=== PATIENT | male | born 1945 | race Caucasian/White ===

== ENCOUNTER 2025-06-13 10:36 | Outpatient (RCR) | payer MEDICARE, OTHER, SELFPAY ==
[2025-06-13] MEDS: INJECTAFER 265 MG IV (11:16)
[2025-06-13 11:27] VITALS: BP 156/72
[2025-06-13 12:25] VITALS: BP 140/70
== END 2025-06-16 09:20 | disposition home or self-care (01) ==
LOC: OID 10:36
PROVIDERS: ATTENDING PHYSICIAN Family Medicine
DX: D50.9 Iron deficiency anemia, unspecified (principal); M35.3 Polymyalgia rheumatica
CPT/HCPCS: 96365; J1439

== ENCOUNTER 2025-06-23 10:32 | Outpatient (RCR) | payer MEDICARE, OTHER, SELFPAY ==
[2025-06-23] MEDS: INJECTAFER 265 MG IV (11:10)
[2025-06-23 11:26] VITALS: BP 138/73
[2025-06-23 12:00] VITALS: BP 133/72
== END 2025-06-24 08:24 | disposition home or self-care (01) ==
LOC: OID 10:32
PROVIDERS: ATTENDING PHYSICIAN Family Medicine
DX: D50.9 Iron deficiency anemia, unspecified (principal); D64.9 Anemia, unspecified; M35.3 Polymyalgia rheumatica; I49.8 Other specified cardiac arrhythmias
CPT/HCPCS: 96365; J1439

== ENCOUNTER 2025-11-03 17:25 | Emergency (ER) | payer MEDICARE, OTHER, SELFPAY ==
[2025-11-03 17:32] VITALS: BP 107/87
[2025-11-03 17:59] LABS: Urine Character Clear (Clear)
[2025-11-03 18:00] LABS: Hematocrit 41.1 % (39.0-52.0); Hemoglobin 13.8 g/dL (13.0-18.0); Mean Corp Hgb Conc. 33.6 g/dL (33.0-37.0); Mean Corpuscular Volume 96.3 fL (80.0-94.0); Nucleated Red Blood Cells % 0 % (-); Platelet Count 232 10^3/uL (130-400); Red Cell Dist. Width 15.0 % (11.5-14.5)
[2025-11-03 18:12] LABS: Urine Red Blood Cell 0-2 /HPF (0-2); Urine Squamous Cell 0-2 /LPF (Few); Urine White Cell 0-2 /HPF (0-5)
[2025-11-03 18:16] LABS: ALT (SGPT) 23 U/L (0-50); AST (SGOT) 27 U/L (17-59); Albumin 4.9 g/dl (3.5-5.0); Alkaline Phosphatase 96 U/L (38-126); Blood Urea Nitrogen 23 mg/dl (9-20); Calcium 10.4 mg/dl (8.4-10.2); Carbon Dioxide 16 mmol/L (22-30); Chloride 106 mmol/L (98-107); Glucose 207 mg/dl (70-99); Potassium 4.8 mmol/L (3.5-5.1); Sodium 137 mmol/L (135-145); Total Protein 7.6 g/dl (6.3-8.2); eGFR > 60.00
[2025-11-03 23:45] VITALS: BP 182/93
--- NOTE | 2025-11-04 00:09 | ED.GENMED ---
History of Present Illness
General
Chief Complaint: Change in Mental Status
Source: patient
Exam Limitations: none
Time Seen by Provider: 11/03/25 23:33
Nursing documentation reviewed up to this point in time: agreed with
History of Present Illness
History of Present Illness:
79-year-old male with a past medical history of TIA, A-fib on Eliquis, diabetes, presents to the ER today with concerns of transient episode of confusion. Patient reports that earlier today around lunchtime, patient was attempting to complete tasks
on his computer and send emails when he was trying to type all of this out and he could not complete the task. Patient reports that he froze at his computer and could not bring himself to work on his computer or remember how to do it. He went to
rest and he tried to do his computer work again but had the same episode of not remembering how to do this task. His also noticed this change and reported that he seemed confused but he had normal speech at the time and knew where he was. He
had a TIA in the past an at that time his symptoms were slurredd speech. He has been compliant with his Eliquis. He is not since followed with neurology. He currently does not follow with a neurologist. He denies any headache or neck pain. He
denies any dizziness. He denies any visual changes. He reports that since he has been in the ER, he has not had further episode of confusion and has been feeling his normal self. He denies abdominal pain, vomiting, coughing, fevers or chills. He
sveta any head or neck trauma. He reports that the last time he had a drink was multiple days ago. He sveta any new medications.
Past History
Past History
ED Past Medical History: Arrthythmia (Atrial fibrillation), HTN, Hypercholesterolemia, NIDDM and Other (Gout, History of C diff, Kidney stones,)
ED Past Surgical History: Cardiac (Radiofrequency ablation of A. fib)
Social History
Tobacco: Non-smoker
Alcohol: Occasional
Drug: None
Personal:
Living: with family
Employment: Retired
Family History
Family History: Hypertension; Negative Sudden
Review of Systems
Review of Systems
All Other Systems: ROS reviewed and negative except as documented in HPI and ROS
Phy Exam
Physical Exam
Physical Exam:
General: Patient is well appearing and in no acute distress; non-toxic
Skin: Warm and dry, no rashes or lesions
Head: Normocephalic, atraumatic
Eyes: Sclera non-icteric. EOMs intact.
Cardiac: Regular rate and rhythm, no murmurs
Peripheral Vascular: No lower extremity swelling or edema
Pulm: Normal respiratory effort, no wheezes, rales, or rhonchi
Abdomen: No abdominal tenderness to palpation
Neuro: CN II-XII intact, no focal neurologic deficits. Normal speech. Oriented times 3. Awake and alewrt. Normal gait, normal finger to nose, heel to marie.
NIHSS of 0.
Psychiatric: Appropriate mood and affect.
Course
Orders/Labs/Results
Orders:
Orders
11/03/25 17:45
Complete Blood Count/With Diff Urgent
Comprehensive Metabolic Panel Urgent
11/03/25 17:46
Urinalysis Reflex To Culture Urgent
Date Specimen was Collected: 11/03/25
Time Specimen was Collected: 17:36
Urine Microscopic Reflex Cult Urgent
11/03/25 23:52
CT Head W/o Iv Contrast Urgent
Comment:
Reason For Exam: confusion
11/04/25
Electrocardiogram (*1) Stat
Reason for Study: TIA/Stroke
11/04/25 00:35
CT Head & Neck Angio W/wo IV Urgent
Comment:
Reason For Exam: confusion, tia concern
Abnormal Lab Results
11/03/25 11/03/25
17:45 17:46
RBC 4.27 L 10^6/uL
(4.70-6.10)
MCV 96.3 H fL
(80.0-94.0)
MCH 32.3 H pg
(27.0-31.0)
RDW 15.0 H %
(11.5-14.5)
Abs Immat Gran (auto) 0.1 H 10^3/uL
(0-0.05)
Absolute Neuts (auto) 7.8 H 10^3/uL
(1.4-6.5)
Absolute Lymphs (auto) 1.1 L 10^3/uL
(1.2-3.4)
Absolute Monos (auto) 0.8 H 10^3/uL
(0.1-0.6)
Immature Gran % 0.9 H %
(0-0.5)
Neutrophils % 78.4 H %
(42.2-75.2)
Lymphocytes % 10.6 L %
(20.5-51.1)
Carbon Dioxide 16 L mmol/L
(22-30)
BUN 23 H mg/dl
(9-20)
Creatinine 0.6 L mg/dL
(0.7-1.3)
Glucose 207 H mg/dl
(70-99)
Calcium 10.4 H mg/dl
(8.4-10.2)
Urine Albumin (Reflex) 2+ A
(Neg - Trace)
11/03/25 17:45
11/03/25 17:45
Vital Signs
Initial and Last Documented VS:
Initial Vital Signs
Temp Pulse Resp BP Pulse Ox
97.9 F 82 16 107/87 98
11/03/25 17:32 11/03/25 17:32 11/03/25 17:32 11/03/25 17:32 11/03/25 17:32
Last Documented Vital Signs
Temp Pulse Resp BP Pulse Ox
97.9 F 74 18 163/98 97
11/03/25 17:32 11/04/25 02:37 11/04/25 02:37 11/04/25 02:34 11/04/25 01:07
MDM/Problems Addressed
Differential Diagnosis Includes:
ddx include TIA, stroke, intracerebral hemorrhage, cardiac arrhythmia, UTI
MDM/Problems Addressed:
79-year-old male with a past medical history of TIA, A-fib on Eliquis, diabetes, presents to the ER today with concerns of transient episode of confusion. Patient reports that earlier today around lunchtime, patient was attempting to complete tasks
on his computer and send emails when he was trying to type all of this out and he could not complete the task. Patient reports that he froze at his computer and could not bring himself to work on his computer or remember how to do it. He had
another episode of this and has been fine since. On physical exam, patient is well-appearing in no acute distress. Normal gait. Normal speech. No focal neurologic deficit. Case reviewed with Dr. Lopez, on-call for neurology who recommended CTA
of the head and neck and if normal, patient can follow-up as an outpatient. Patient was sent for the studies and his CTA showed no significant stenosis no evidence of aneurysm or vessel occlusion. Follow-up given for Dr. Cruz's office. Indication
for admission at this time. Patient does have a acidosis noted. His glucose is 207 but he has no ketones in his urine. I did want to give him IV fluids and repeat his bicarb after to ensure the acidosis resolves however patient reports that he
wants to go home and is refusing as he has been here for multiple hours. I explained patient's the risk and benefits of this. Do not see any reason currently I patient is acidotic, I stressed the importance of following closely with his primary
care provider and repeating blood work. Patient expressed understanding. Patient stable for discharge. Case discussed with ED attending.
*Pulse Oximetry
SaO2: 96
Oxygen Mode of Delivery: Room air
Patient hypoxic: no
*Critical Care Note
Total Time (30-74mins, 75-104mins- exclusive of procedures): Not Applicable
Data Reviewed
Review of Other/Old Records Reveals: Records (reviewed discharge summary from 10/07/22 patient had normal MRIs at that time)
Source: patient and records
Patient Management
Discussion with other providers: [facility] (Dr. Lopez)
Escalation/DeEscalation of care consider admission/obs:
pt stable for discharge
ED Attending Note
-
Portions of this chart may have been created with voice recognition software.� Occasional wrong word or��sound alike� substitutions may have occurred due to the inherent limitations of voice recognition software.
Discharge Plan
Departure
Patient Disposition: Home (Routine Discharge)
Date of Disposition: 11/04/25
Time of Disposition: 02:17
Patient with high blood pressure during this ER visit?: Yes
Condition: Good
Discharge Problem:
Transient confusion
Instructions: Altered Mental Status (DC), BLOOD PRESSURE
Prescriptions:
No Action
allopurinol 300 MG tablet
300 mg PO BID
losartan 25 MG tablet
25 mg PO HS
Tradjenta 5 MG tablet
5 mg PO HS
pentoxifylline 400 MG tablet extended release
400 mg PO TID
glipizide 10 mg Tablet
10 mg PO BID@0800,1700
metformin 1,000 mg Tablet
1,000 mg PO BID@0800,1700
pioglitazone 30 mg Tablet
30 mg PO DAILY
finasteride 5 mg Tablet
5 mg PO HS
atorvastatin 20 mg tablet
20 mg PO HS
cyanocobalamin (vitamin B-12) 5,000 mcg Capsule
5,000 mcg PO DAILY
Therems Tablet
1 tab PO DAILY
Eliquis 5 mg tablet
5 mg PO BID
doxycycline hyclate 100 mg Capsule
100 mg PO DAILY
cefadroxil 1 gram Tablet
1,000 mg PO DAILY
Probiotic 3 billion cell Capsule
3,000 mmu cells PO DAILY
metoprolol succinate 50 mg Capsule,Sprinkle,Er 24hr
50 mg PO DAILY
amoxicillin 500 mg Tablet
500 mg PO BID
Referrals:
Jeffry Varela MD [Family Provider, Family Practice]
Armen Lopez MD [Active, Neurology] - Call in 1-3 days for appt
Activity Restrictions/Additional Instructions:
As discussed, you did not want to stay for IV fluids and repeat blood work as recommended. Please call your primary care provider later today to get your CMP repeated in the next for days.
Please call the attached number to call Dr. Lopez who will arrange outpatient follow up.
PLEASE RETURN SHOULD YOU DEVELOP A RETURN OF SYMPTOMS, DIFFICULTY SPEAKING, VOMITING, NAUSEA, CHEST PAIN, SHORTNESS OF BREATH, DIZZINESS, LIGHTHEADEDNESS, OR ANY OTHER SIGNS OR SYMPTOMS WORRISOME TO YOU.
Interventions
Interventions:
*General Assessment Last Done: 11/03/25 17:32
*Neglect/Abuse Screening Last Done: 11/03/25 23:42
*ED COVID-19 Vaccine History Last Done: 11/03/25 23:42
*ED Influenza Vaccine History Last Done: 11/03/25 23:42
[facility] Fall Risk Assessment Tool Last Done: 11/03/25 23:42
*Risk Screen - Suicide (C-SSRS) Last Done: 11/03/25 17:32
*Nursing Disposition Last Done: 11/04/25 02:27
ED- Pulmonary Assessment Last Done: 11/03/25 23:47
ED- Neurological Assessment Last Done: 11/03/25 23:49
ED- Cardiac Assessment Last Done: 11/03/25 23:47
Discharge Date and Time
Discharge Date/Time: 11/04/25 02:38
Print Language: ESTONIAN
[2025-11-04 00:29] VITALS: BP 164/100
[2025-11-04 01:00] VITALS: BP 160/85
[2025-11-04 02:34] VITALS: BP 163/98
== END 2025-11-04 02:38 | disposition home or self-care (01) ==
LOC: EMR 17:25
PROVIDERS: Physician Assistant Medical; EMERGENCY PHYSICIAN Student in an Organized Health Care Education/Training Program; FAMILY PHYSICIAN Family Medicine
DX: R41.82 Altered mental status, unspecified (principal); I48.91 Unspecified atrial fibrillation; E11.9 Type 2 diabetes mellitus without complications; E78.00 Pure hypercholesterolemia, unspecified; E87.20 Acidosis, unspecified; I10 Essential (primary) hypertension; M10.9 Gout, unspecified; Z79.01 Long term (current) use of anticoagulants; Z82.49 Family history of ischemic heart disease and other diseases of the circulatory system; Z86.19 Personal history of other infectious and parasitic diseases; Z86.73 Personal history of transient ischemic attack (TIA), and cerebral infarction without residual deficits; Z87.442 Personal history of urinary calculi
CPT/HCPCS: 99284; 70450; 70496; 70498; 80053; 81003; 81015; 85025; 93005; Q9967